=== PATIENT | female | born 1990 | race American Indian/Alaskan Native ===

== ENCOUNTER 2016-10-13 10:03 | Emergency (ER) | payer SELFPAY ==
[2016-10-13 10:50] LABS: Anion Gap 17 mmol/L; BUN/Creatinine Ratio 18.57; Basophils % (Auto) 0.1 % (0.0-1.8); Blood Urea Nitrogen 13 mg/dL (7-17); Calcium 8.9 mg/dL (8.4-10.2); Carbon Dioxide 21 mmol/L (22-30); Chloride 103.1 mmol/L (98-107); Glucose 140 mg/dL (65-100); Hematocrit 36.5 % (30.3-42.9); Hemoglobin 11.7 gm/dl (10.1-14.3); Mean Corpuscular HGB Conc 32 % (30-34); Mean Corpuscular Hemoglobin 27 pg (28-32); Mean Corpuscular Volume 84 fl (79-97); Platelet Count 152 K/mm3 (140-440); Potassium 3.3 mmol/L (3.6-5.0); Red Blood Count 4.34 M/mm3 (3.65-5.03); Red Cell Distribution Width 15.6 % (13.2-15.2); Sodium 138 mmol/L (137-145); White Blood Count 17.4 K/mm3 (4.5-11.0)
[2016-10-13 12:18] LABS: Bacteria,Urine 4+ /HPF (Negative); Bilirubin,Urine NEG (Negative); Blood,Urine LG (Negative); Ketones,Urine TR mg/dL (Negative); Leukocyte Esterase,Urine SM (Negative); Mucus,Urine 3+ /HPF; Nitrite,Urine NEG (Negative); Urobilinogen,Urine < 2.0 mg/dL (<2.0)
--- NOTE | 2016-10-13 13:08 | Emergency Department Report ---
ED General Adult HPI - General Chief complaint: Skin/Abscess/Foreign Body Stated complaint: ABCESS/VOMITING/DIZZINESS/FEVER Time Seen by Provider: 10/13/16 13:04 Source: patient Mode of arrival: Ambulatory Limitations: No Limitations - History of Present Illness Initial comments: PT c/o R sided vaginal abscess for 2 days. PT states she has had a hx of abscesses and had them drained before. PT does c/o f/c/n/v. PT states she threw up yesterday and has not thrown up today. Complaint: abscess Onset/Timin -: Gradual, days(s) Location: genitals (r side of vagina ) Severity scale (0 -10): 10 Quality: constant Consistency: constant Improves with: none Worsens with: other (palpation ) Associated Symptoms: fever/chills, loss of appetite, nausea/vomiting Treatments Prior to Arrival: none - Related Data Previous Rx's Medication Instructions Recorded Last Taken Type HYDROcodone/APAP 5-325 [[place] 1 each PO Q6HR PRN #12 tablet 12/30/15 Unknown Rx 5/325] Ibuprofen [Motrin 600 MG tab] 600 mg PO Q8H PRN #30 tablet 12/30/15 Unknown Rx Sulfamethoxazole/Trimethoprim 1 each PO BID #20 tablet 12/30/15 Unknown Rx [Bactrim DS TAB] Allergies Allergy/AdvReac Type Severity Reaction Status Date / Time No Known Allergies Allergy Unverified 12/30/15 09:35 ED Review of Systems ROS: Stated complaint: ABCESS/VOMITING/DIZZINESS/FEVER Other details as noted in HPI Comment: All other systems reviewed and negative Constitutional: chills, fever Gastrointestinal: nausea, vomiting. denies: abdominal pain Genitourinary: denies: dysuria, frequency, discharge, abnormal menses ED Past Medical Hx - Past Medical History Previous Medical History?: No Hx Diabetes: No - Surgical History Past Surgical History?: Yes Additional Surgical History: x 1 - Social History Smoking Status: Current Every Day Smoker - Medications Home Medications: Home Medications Medication Instructions Recorded Confirmed Last Taken Type HYDROcodone/APAP 5-325 [[place] 1 each PO Q6HR PRN #12 tablet 12/30/15 Unknown Rx 5/325] Ibuprofen [Motrin 600 MG tab] 600 mg PO Q8H PRN #30 tablet 12/30/15 Unknown Rx Sulfamethoxazole/Trimethoprim 1 each PO BID #20 tablet 12/30/15 Unknown Rx [Bactrim DS TAB] ED Physical Exam - General Limitations: Other (pt refused exam ) General appearance: alert, in no apparent distress - Head Head exam: Present: atraumatic, normocephalic - Eye Eye exam: Present: normal appearance. Absent: conjunctival injection - ENT ENT exam: Present: normal exam, normal external ear exam - Neck Neck exam: Present: normal inspection - Respiratory Respiratory exam: Absent: respiratory distress - Cardiovascular Cardiovascular Exam: Present: tachycardia - GI/Abdominal GI/Abdominal exam: Present: soft. Absent: tenderness - External exam: Present: other (pt refused. noted swelling to L labia ) - Extremities Exam Extremities exam: Present: normal inspection, full ROM - Back Exam Back exam: Present: normal inspection, full ROM - Neurological Exam Neurological exam: Present: alert, oriented X3 - Psychiatric Psychiatric exam: Present: normal affect, normal mood - Skin Skin exam: Present: warm, dry, intact ED Course Vital Signs 10/13/16 10:07 Temperature 98.5 F Pulse Rate 112 H Respiratory 20 Rate O2 Sat by Pulse 100 Oximetry - Reevaluation(s) Reevaluation #1: 10/13/16 13:30 PT refused for me to do exam. PT refused I and Shira Owens RN at bedside for conversation. PT aware if I can not exam/ treat her problem, this could worsen. PT aware she can sign out AMA and RX for antibiotic will be given. - Pulse Oximetry Interpretation Digit-Finger Initial Pulse Oximetry Readin Actions Taken: none ED Medical Decision Making - Lab Data Result diagrams: 10/13/16 10:22 10/13/16 10:22 Labs 10/13/16 10/13/16 10/13/16 10:22 10:22 10:26 WBC 17.4 H RBC 4.34 Hgb 11.7 Hct 36.5 MCV 84 MCH 27 L MCHC 32 RDW 15.6 H Plt Count 152 Lymph % (Auto) 6.5 L [place] % (Auto) 4.2 Eos % (Auto) 0.0 Baso % (Auto) 0.1 Lymph # 1.1 L [place] # 0.7 Eos # 0.0 Baso # 0.0 Seg Neutrophils % 89.2 H Seg Neutrophils # 15.6 H Sodium 138 Potassium 3.3 L Chloride 103.1 Carbon Dioxide 21 L Anion Gap 17 BUN 13 Creatinine 0.7 Estimated GFR > 60 BUN/Creatinine Ratio 18.57 Glucose 140 H Calcium 8.9 Urine Color Paz Urine Turbidity Cloudy Urine pH 5.0 Urine Protein 100 mg/dl Urine Glucose (UA) 150 Urine Ketones Tr Urine Blood Lg Urine Nitrite Neg Urine Bilirubin Neg Urine Urobilinogen < 2.0 Ur Leukocyte Esterase Sm Urine WBC (Auto) 70.0 H Urine RBC (Auto) 27.0 U Epithel Cells (Auto) 45.0 H Urine Bacteria (Auto) 4+ Ur Transition Epith Cell 5 Urine Mucus 3+ Urine HCG, Qual Negative urine likely contaminated. UA shows 45 epithel cells. pt on her cycle and has L labial abscess - Differential Diagnosis Bartholin's cyst, abscess, uti, Critical Care Time: No Critical care attestation.: If time is entered above; I have spent that time in minutes in the direct care of this critically ill patient, excluding procedure time. ED Disposition Clinical Impression: Hypokalemia, Glucose found in urine on examination, Left genital labial abscess Leukocytosis Qualifiers: Leukocytosis type: unspecified Qualified Code(s): D72.829 - Elevated white blood cell count, unspecified Disposition: LEFT AGAINST MEDICAL ADVICE Is pt being admited?: No Does the pt Need Aspirin: No Condition: Stable Instructions: Abscess (ED), Hypokalemia (ED) Additional Instructions: Warm compresses to labia Refrain from smoking - delays wound healing Return to ED for worsening or concerns follow up with PCP or COMPLIANCE ADVISOR in 1-2 days Referrals: BERNADETTE WATSON MD [Primary Care Provider] - 3-5 Days OVI BEASLEY MD [Staff Physician] - 3-5 Days [facility] [Provider Group] - 3-5 Days Time of Disposition: 13:40
[2016-10-13] MEDS ORDERED: ZOFRAN ODT PO ONE (13:37)
[2016-10-13] MEDS ORDERED: K-DUR PO ONE (13:37)
[2016-10-13] MEDS ORDERED: KEFLEX PO ONE (13:38)
[2016-10-13] MEDS ORDERED: BACTRIM DS PO ONE (13:38)
== END 2016-10-13 13:53 | disposition left against medical advice (07) ==
LOC: ED 10:03
DX: E87.6 Hypokalemia (principal); N76.4 Abscess of vulva; D72.829 Elevated white blood cell count, unspecified; F17.200 Nicotine dependence, unspecified, uncomplicated
CPT/HCPCS: 36415; 80048; 81001; 81025; 85025; 99283; Q0162

== ENCOUNTER 2016-10-14 21:03 | Emergency (ER) | payer MEDICAID ==
[2016-10-14 22:15] VITALS: BP 121/80
[2016-10-14 23:16] LABS: Basophils % (Auto) 0.1 % (0.0-1.8); Eosinophils % (Auto) 0.9 % (0.0-4.3); Hematocrit 35.2 % (30.3-42.9); Hemoglobin 11.4 gm/dl (10.1-14.3); Mean Corpuscular HGB Conc 33 % (30-34); Mean Corpuscular Hemoglobin 27 pg (28-32); Mean Corpuscular Volume 84 fl (79-97); Platelet Count 163 K/mm3 (140-440); Red Blood Count 4.19 M/mm3 (3.65-5.03); Red Cell Distribution Width 15.9 % (13.2-15.2); White Blood Count 18.5 K/mm3 (4.5-11.0)
[2016-10-14 23:31] LABS: Anion Gap 20 mmol/L; BUN/Creatinine Ratio 15.71; Blood Urea Nitrogen 11 mg/dL (7-17); Calcium 8.9 mg/dL (8.4-10.2); Carbon Dioxide 20 mmol/L (22-30); Chloride 103.3 mmol/L (98-107); Glucose 84 mg/dL (65-100); Potassium 3.8 mmol/L (3.6-5.0); Sodium 139 mmol/L (137-145)
--- NOTE | 2016-10-15 14:49 | ED Elopement Review ---
ED Pt Elopement review - Results review Lab results: Laboratory Tests 10/14/16 10/14/16 23:02 23:02 WBC 18.5 H RBC 4.19 Hgb 11.4 Hct 35.2 MCV 84 MCH 27 L MCHC 33 RDW 15.9 H Plt Count 163 Lymph % (Auto) 9.4 L [place] % (Auto) 5.1 Eos % (Auto) 0.9 Baso % (Auto) 0.1 Lymph # 1.7 [place] # 0.9 H Eos # 0.2 Baso # 0.0 Seg Neutrophils % 84.5 H Seg Neutrophils # 15.7 H Sodium 139 Potassium 3.8 Chloride 103.3 Carbon Dioxide 20 L Anion Gap 20 BUN 11 Creatinine 0.7 Estimated GFR > 60 BUN/Creatinine Ratio 15.71 Glucose 84 Calcium 8.9 - Call Back decision Pt Call Back Decision: Call pt to return to ED [place] (leukocytosis and tachycardia should be addressed)
== END 2016-10-15 02:34 | disposition left against medical advice (07) ==
LOC: ED 21:03
DX: N76.0 Acute vaginitis (principal); Z53.21 Procedure and treatment not carried out due to patient leaving prior to being seen by health care provider
CPT/HCPCS: 36415; 80048; 85025

== ENCOUNTER 2017-08-31 17:30 | Emergency (ER) | payer MEDICAID ==
[2017-08-31 17:49] VITALS: BP 126/75
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
[2017-08-31] MEDS ORDERED: NORCO 5/325 PO ONE (20:12)
[2017-08-31] MEDS ORDERED: BOOSTRIX IM ONE (20:24)
== END 2017-08-31 20:35 | disposition home or self-care (01) ==
LOC: ED 17:30
DX: S41.111A Laceration without foreign body of right upper arm, initial encounter (principal); F17.200 Nicotine dependence, unspecified, uncomplicated; X99.1XXA Assault by knife, initial encounter; Y93.89 Activity, other specified; Y99.8 Other external cause status; Y92.89 Other specified places as the place of occurrence of the external cause
CPT/HCPCS: 90471; 90715; 99283

== ENCOUNTER 2017-09-24 20:17 | Emergency (ER) | payer MEDICAID ==
[2017-09-24 21:19] VITALS: BP 121/79
[2017-09-24] MEDS ORDERED: TYLENOL ONE (21:21)
[2017-09-24] MEDS ORDERED: TYLENOL PO ONE (21:21)
[2017-09-24 21:45] LABS: HCG Qualitative,Urine Negative (Negative)
[2017-09-24 21:50] LABS: Bilirubin,Urine NEG (Negative); Blood,Urine NEG (Negative); Color,Urine Yellow (Yellow); Protein,Urine <15 mg/dL mg/dL (Negative); Urobilinogen,Urine < 2.0 mg/dL (<2.0)
--- NOTE | 2017-09-24 23:06 | XRay Report ---
FINAL REPORT PROCEDURE: XR SPINE LUMBOSACRAL 2-3V TECHNIQUE: Lumbar spine radiographs, frontal and lateral views. CPT 89550 HISTORY: lower back pain COMPARISON: No prior studies are available for comparison. FINDINGS: Alignment: Normal . Vertebral body heights/Disk spaces: Normal . Fracture(s): None . Facets: Normal . Bone mineralization: Normal . IMPRESSION: Negative examination
== END 2017-09-25 00:46 | disposition left against medical advice (07) ==
LOC: ED 20:17
DX: M54.9 Dorsalgia, unspecified (principal); Z53.21 Procedure and treatment not carried out due to patient leaving prior to being seen by health care provider
CPT/HCPCS: 72100; 81001; 81025

== ENCOUNTER 2021-07-02 09:10 | Emergency (ER) | payer MEDICAID ==
--- NOTE | 2021-07-02 11:07 | Emergency Department Report ---
ED ENT HPI - General Chief complaint: Dental/Oral Stated complaint: FACE SWOLLNE/TOOTHACHE Time Seen by Provider: 07/02/21 11:01 Source: patient Mode of arrival: Ambulatory Limitations: No Limitations - History of Present Illness MD complaint: tooth pain -: days(s) (3) Severity: moderate Improves with: NSAID Worsens with: none Context- Dental: history of dental caries Associated Symptoms: denies: fever, cough, pain with swallowing, sore throat, discharge from ear, rhinorrhea - Related Data Previous Rx's Medication Instructions Recorded Last Taken Type Ondansetron [Zofran Odt] 4 mg PO Q8HR PRN #10 tab.rapdis 10/13/16 Unknown Rx Sulfamethoxazole/Trimethoprim 1 each PO BID #20 tablet 10/13/16 Unknown Rx [Bactrim DS TAB] cephALEXin [Keflex] 500 mg PO Q6HR #40 capsule 10/13/16 Unknown Rx Allergies Allergy/AdvReac Type Severity Reaction Status Date / Time No Known Allergies Allergy Verified 07/02/21 09:15 ED Dental HPI - General Chief complaint: Dental/Oral Stated complaint: FACE SWOLLNE/TOOTHACHE Time Seen by Provider: 07/02/21 11:01 Source: patient Mode of arrival: Ambulatory Limitations: No Limitations - Related Data Previous Rx's Medication Instructions Recorded Last Taken Type Ondansetron [Zofran Odt] 4 mg PO Q8HR PRN #10 tab.rapdis 10/13/16 Unknown Rx Sulfamethoxazole/Trimethoprim 1 each PO BID #20 tablet 10/13/16 Unknown Rx [Bactrim DS TAB] cephALEXin [Keflex] 500 mg PO Q6HR #40 capsule 10/13/16 Unknown Rx Allergies Allergy/AdvReac Type Severity Reaction Status Date / Time No Known Allergies Allergy Verified 07/02/21 09:15 ED Review of Systems ROS: Stated complaint: FACE SWOLLNE/TOOTHACHE Other details as noted in HPI Comment: All other systems reviewed and negative Constitutional: denies: chills, fever Respiratory: denies: cough, shortness of breath Cardiovascular: denies: chest pain, palpitations Gastrointestinal: denies: abdominal pain, nausea ED Past Medical Hx - Past Medical History Hx Diabetes: No - Surgical History Additional Surgical History: x 1 - Social History Smoking Status: Current Every Day Smoker Substance Use Type: None - Medications Home Medications: Home Medications Medication Instructions Recorded Confirmed Last Taken Type Ondansetron [Zofran Odt] 4 mg PO Q8HR PRN #10 tab.rapdis 10/13/16 Unknown Rx Sulfamethoxazole/Trimethoprim 1 each PO BID #20 tablet 10/13/16 Unknown Rx [Bactrim DS TAB] cephALEXin [Keflex] 500 mg PO Q6HR #40 capsule 10/13/16 Unknown Rx ED Physical Exam - General Limitations: No Limitations General appearance: alert, in no apparent distress - Head Head exam: Present: atraumatic, normocephalic, normal inspection - Eye Eye exam: Present: normal appearance - ENT ENT exam: Present: other (Multiple dental caries with possible abscess.) - Neck Neck exam: Present: normal inspection, full ROM. Absent: tenderness, meningismus, lymphadenopathy, thyromegaly - Respiratory Respiratory exam: Present: normal lung sounds bilaterally - Cardiovascular Cardiovascular Exam: Present: regular rate, normal rhythm, normal heart sounds - GI/Abdominal GI/Abdominal exam: Present: soft. Absent: distended, tenderness, guarding ED Course Vital Signs 07/02/21 09:14 Temperature 98 F Pulse Rate 77 Respiratory 18 Rate Blood Pressure 129/83 [Left] O2 Sat by Pulse 100 Oximetry Critical care attestation.: If time is entered above; I have spent that time in minutes in the direct care of this critically ill patient, excluding procedure time. ED Disposition Clinical Impression: Dental abscess Disposition: HOME / SELF CARE / HOMELESS Is pt being admited?: No Condition: Stable Instructions: Dental Abscess Referrals: PRIMARY CARE, [Referring] - 3-5 Days
[2021-07-02 11:38] VITALS: BP 123/91
== END 2021-07-02 11:37 | disposition home or self-care (01) ==
LOC: ED 09:10
DX: K04.7 Periapical abscess without sinus (principal)
CPT/HCPCS: 99282